=== PATIENT | male | born 1985 | race American Indian/Alaskan Native ===

== ENCOUNTER 2016-10-22 06:12 | Day surgery (SDC) | payer BC ==
[2016-10-08 09:43] VITALS: BMI 26.7
[2016-10-22] MEDS ORDERED: Lactated Ringer's 1,000 ML IV ONE ×2 (08:05→10:28)
[2016-10-22] MEDS ORDERED: Propofol 10 mg/ml Inj (20 ML) ONE (08:17)
[2016-10-22] MEDS ORDERED: Midazolam 2 MG/2 ML VIAL ONE (08:17)
[2016-10-22] MEDS ORDERED: Bupivacaine 0.5% Inj(30mL) ONE ×2 (08:30→09:21)
[2016-10-22] MEDS ORDERED: MethylPREDNISolone Depo 40 mg/ml Inj ONE (08:30)
[2016-10-22] MEDS ORDERED: Lidocaine 1% Inj (20ml) ONE (08:31)
[2016-10-22] MEDS ORDERED: EPINEPHrine 1:1000 Nasal Sol(30mL) ONE (09:21)
[2016-10-22] MEDS ORDERED: ceFAZolin IV 2 gm in Dextrose 1 GM/50 ML BAG IVPB ONE (09:21)
[2016-10-22 09:48] LABS: HEMATOCRIT 40.7 % (35.0-51.0); MEAN CELL VOLUME 79.4 fL (80.0-94.0); MEAN CORPUSCULAR HEMOGLOBIN 26.7 pg (27.0-31.0); MEAN CORPUSCULAR HGB CONC 33.6 g/dL (33.0-37.0); MEAN PLATELET VOLUME 11.8 fL (7.2-11.7); WHITE BLOOD COUNT 6.3 K/uL (4.8-10.8)
[2016-10-22] MEDS: HYDROmorphone 0.5 mg/0.5 ml ISec IVP PRN ×3 (11:17→12:08)
[2016-10-22] MEDS ORDERED: Lactated Ringer's 500 ML IV ONE (12:19)
--- NOTE | 2016-10-22 12:20 | PCM.ANESB7 ---
Adductor Canal Block - Adductor Canal Block Procedure Performed: Adductor Canal Block Left - Procedure Adductor Canal Block: The procedure was explained to the patient that it is for the post-operative pain management. Consent was obtained after a thorough discussion with the patient regarding the benefits and possible complications of local anesthetic adductor canal block of the femoral nerve. Standard monitors, as defined by the ASA, were applied to the patient. Time-out was held with the circulating nurse to confirm the appropriate block. After applying supplemental oxygen and administering IV Sedation as needed, the patient was placed in supine position with and the operative leg was flexed slightly at the knee and externally rotated as needed, and was kept anatomically stable. The mid-thigh of the _LEFT _ lower extremity was exposed. The ultrasound transducer was then applied transversely along the medial aspect, about midway down the thigh and the femoral artery and vein were identified in appropriate relation with the sartorius muscle. At this time, the femoral nerve was visualized lateral to the femoral artery within the canal. After thorough identification, this area area was prepped with Chloroprep solution three times and 1 % Lidocaine was injected subcutaneously for topical anesthesia. At this point, a #22 gauge Stimuplex 4-inch needle was inserted in-plane in a [id number] orientation, and advanced toward the femoral nerve. Advancement was performed carefully under direct ultrasound visualization. After negative aspiration, 10__ cc of ___0.5_ % _bupivicaine___was injected and this was followed with __10__ cc of ___0.5_ % _bupivicaine___. Under ultrasound guidance the local anesthetics were observed spreading around the saphenous nerve. The needle was removed intact and sterile dressing was applied. The patient had stable vital signs, was conscious and in no apparent distress. The patient tolerated the femoral nerve block with no complaints well with stable vital signs.
[2016-10-22 13:44] VITALS: RESP 16
--- NOTE | 2016-10-22 15:41 | PCM.SURG1 ---
Surgeon's Initial Post Op Note - Surgeon's Notes Surgeon: Briseyda Lundy MD Branch Specialist: Dilip Monterroso PA-C Type of Anesthesia: General Endo, Block Regional Pre-Operative Diagnosis: Left Knee: #1 Complete ACL tear. #2 Medial meniscal tear(peripheral) Operative Findings: Left Knee: #1 Complete ACL tear. #2 Medial meniscal tear( peripheral). #3 Focal full thickness cartilage loss trochlea ([id number]). #4 Synovitis and medial plica band Post-Operative Diagnosis: Left Knee: #1 Complete ACL tear. #2 Medial meniscal tear(peripheral). #3 Focal full thickness cartilage loss trochlea ([id number]). # 4 Synovitis and medial plica band Operation Performed: Left knee arthroscopic assisted. #1 ACL reconstruction with allograft HS. #2 Medial meniscal repair. #3 Microfacture trochlea focal full thickness cartilage loss. #4 Synovectomy and resection of plica band Specimen/Specimens Removed: Specimen=None. Tourniquete time=0 minutes. Implants: [employer] all inside meniscal repair system 8 implants in total for MMR. Arthrex tight rope button and suture/[id number] bio composite delta screw/ allograft semitT & gracilis hs graft. complications= none Estimated Blood Loss: EBL {In ML}: 10 Blood Products Given: N/A Drains Used: No Drains Post-Op Condition: Good Date of Surgery/Procedure: 10/22/16 Time of Surgery/Procedure: 15:48
[2016-10-22 16:36] VITALS: BP 125/69; PULSE 100; TEMP 98.6; O2SAT 98
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
== END 2016-10-22 16:43 | disposition home or self-care (01) ==
LOC: C.SDS 06:12
PROVIDERS: ATTEND Student in an Organized Health Care Education/Training Program
DX: S83.232D Complex tear of medial meniscus, current injury, left knee, subsequent encounter (principal); M94.262 Chondromalacia, left knee; M67.862 Other specified disorders of synovium, left knee; S83.512A Sprain of anterior cruciate ligament of left knee, initial encounter
CPT/HCPCS: 29875; 29883; 29888; 36415; 85027; 86850; 86900; 97116; 97161; G8978; G8979; G8980; J0131; J0690; J1170; J2250; J2704; J3010; J7120

== ENCOUNTER 2018-07-07 14:28 | Emergency (ER) | payer BC ==
[2018-07-07 14:28] VITALS: BMI 26.7
[2018-07-07 14:39] VITALS: BP 124/76; PULSE 90; RESP 18; TEMP 98.1; O2SAT 98
[2018-07-07] MEDS ORDERED: Tdap Vaccine 0.5 ml Vial (10-64 yrs) IM ONE ×2 (14:51→15:11)
[2018-07-07] MEDS ORDERED: Bacitracin 500 Units/gm Oint Foilpak UD TOP STA (14:52)
[2018-07-07] MEDS ORDERED: Bacitracin 500 Units/gm Oint Foilpak UD ONE (15:11)
--- NOTE | 2018-07-07 15:54 | C.PDOC ---
History Of Present Illness 33 year old male presents to the ED status post accidentally poking left palm with bry nail prior to arrival. Denies any other injuries. Denies fever or chills. Time Seen by Provider: 07/07/18 14:49 Chief Complaint (Nursing): Abnormal Skin Integrity History Per: Patient History/Exam Limitations: no limitations Onset/Duration Of Symptoms: Days Current Symptoms Are (Timing): Still Present Location Of Injury: Left: Hand (puncture ) Past Medical History Vital Signs: Last Vital Signs Temp 98.1 F 07/07/18 14:37 Pulse 90 07/07/18 14:37 Resp 18 07/07/18 14:37 BP 124/76 07/07/18 14:37 Pulse Ox 98 07/07/18 14:37 Primary Care Provider: FAMILY PROVIDER,NO - Medical History PMH: Pneumonia (childhood) Denies: Chronic Kidney Disease Family History: States: No Known Family Hx - Social History Hx Alcohol Use: Yes Hx Substance Use: No Review Of Systems Except As Marked, All Systems Reviewed And Found Negative. Constitutional: Negative for: Fever, Chills Skin: Positive for: Other (puncture to left palm ) Physical Exam - Physical Exam Appears: Non-toxic, No Acute Distress Skin: Warm, Dry, Other (small puncture wound to middle of left palm ) Head: Normacephalic Eye(s): bilateral: Normal Inspection Neck: Supple Chest: Symmetrical Cardiovascular: Rhythm Regular Respiratory: Normal Breath Sounds, No Rales, No Rhonchi, No Wheezing Neurological/Psych: Oriented x3, Normal Speech Gait: Steady ED Course And Treatment O2 Sat by Pulse Oximetry: 98 (RA) Pulse Ox Interpretation: Normal Progress Note: Patient given Tetanus vaccination and Cipro. Wound cleaned with Normal Saline and Water. Bacitracian applied. Patient instructed to follow up with PMD and return to the ED if symptoms persist or worsen. Disposition - Disposition Referrals: Karina Mendoza MD [Staff Provider] - [facility] [Outside] Disposition: HOME/ ROUTINE Disposition Time: 15:52 Condition: STABLE Additional Instructions: Follow up with PMD within 1-2 days. Return to ED immediately if feel worse. 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 - Scribe Statement The provider has reviewed the documentation as recorded by the Scribe Ana Rosa Thakkar All medical record entries made by the Scribe were at my direction and personally dictated by me. I have reviewed the chart and agree that the record accurately reflects my personal performance of the history, physical exam, medical decision making, and the department course for this patient. I have also personally directed, reviewed, and agree with the discharge instructions and disposition.
== END 2018-07-07 15:56 | disposition home or self-care (01) ==
LOC: C.ER 14:28
DX: S61.432A Puncture wound without foreign body of left hand, initial encounter (principal); W45.0XXA Nail entering through skin, initial encounter